=== PATIENT | male | born 1965 | race Caucasian/White ===

== ENCOUNTER 2022-07-20 18:23 | Inpatient (IN) | payer BC ==
[~2022-07-20] VITALS: Ht 180.3 cm; Wt 121.6 kg
[2022-07-20 19:07] VITALS: BP_SYST 132
--- NOTE | 2022-07-20 19:54 | NUR ---
Placed in room 03 . Placed on case monitor, blood pressure machine and pulse oximeter. To gown for exam. Side rails up. Report given to GEORGIE WILLIS.
--- NOTE | 2022-07-20 20:03 | NUR ---
Received pt in bed 3, A&OX4, NAD. Pt c/o of abdominal pain. Pt reported that he went to urgent care for his abd pain.
[2022-07-20 20:04] LABS: BASOPHILS % (AUTO) 0.4 % (0.0-2.0); EOSINOPHILS % (AUTO) 0.3 % (0.0-4.0); HEMATOCRIT 43.4 % (36-54); HEMOGLOBIN 14.7 g/dL (14.0-18.0); LYMPHOCYTES # (AUTO) 1.2 K/uL (1.0-5.5); LYMPHOCYTES % (AUTO) 8.9 % (20.5-51.5); MEAN CORPUSCULAR HEMOGLOBIN 30 pg (27-31); MEAN CORPUSCULAR HGB CONC 34 % (32-36); MEAN CORPUSCULAR VOLUME 88 fL (79.0-98.0); MONOCYTES % (AUTO) 7.7 % (1.7-9.3); NEUTROPHILS % (AUTO) 82.7 % (40.0-70.0); PLATELET COUNT (AUTO) 207 K/uL (130-430); RED BLOOD CELL COUNT(AUTO) 4.95 MIL/uL (4.2-6.2); RED CELL DISTRIBUTION WIDTH 14.1 % (9.0-15.0); WHITE BLOOD COUNT (AUTO) 13.3 K/uL (4.8-10.8)
--- NOTE | 2022-07-20 20:04 | NUR ---
ER Dr. Arenas at bedside examining patient.
--- NOTE | 2022-07-20 20:05 | NUR ---
# 20 gauge angiocath placed to R AC. Use of asceptic technique. Opsite placed over site. Blood return noted. Blood for lab drawn from site. Flushed with 10 cc of normal saline. No evidence of infiltration noted. Patient tolerated well.
[2022-07-20 20:13] LABS: ANION GAP 8 (5-15); CALCIUM 8.9 mg/dL (8.4-11.0); CHLORIDE 100 mmol/L (98-107); GFR AFRICAN AMERICAN 80 mL/min (>90); GLUCOSE 119 mg/dL (70-99); UREA NITROGEN, BLOOD 15 mg/dL (8-21)
[2022-07-20] MEDS ORDERED: NACL 0.9% 1,000 ML IV ONE ×3 (20:15→22:00)
[2022-07-20 20:25] LABS: ALANINE AMINOTRANSFERASE 40 U/L (12-78); ALBUMIN 4.1 g/dL (3.4-4.8); ASPARTATE AMINOTRANSFERASE 20 U/L (10-37); TOTAL BILIRUBIN 0.8 mg/dL (0.0-1.0)
[2022-07-20 20:26] LABS: BILIRUBIN,URINE NEGATIVE (NEGATIVE); BLOOD, URINE NEGATIVE (NEGATIVE); CLARITY/URINE CLEAR (CLEAR); COLOR,URINE YELLOW (YELLOW); GLUCOSE,URINE NEGATIVE (NEGATIVE); KETONES,URINE NEGATIVE (NEGATIVE); LEUKOCYTE ESTERASE ,URINE NEGATIVE (NEGATIVE); NITRITE, URINE NEGATIVE (NEGATIVE); PH,URINE 5.5 (5.0-8.0); PROTEIN URINE NEGATIVE (NEGATIVE); UROBILINOGEN,URINE 0.2 (0.2-1.0)
[2022-07-20] MEDS ORDERED: iohexoL 350 mgI/mL, 100 ML INFUS..BTL IV ONE (20:38)
[2022-07-20] MEDS ORDERED: MORPHINE 4 MG INJ. 4 MG/ML VIAL IVP ONE (22:00)
[2022-07-20] MEDS ORDERED: ONDANSETRON HCL 4 MG/2 ML VIAL IVP ONE (22:00)
[2022-07-20] MEDS ORDERED: cefTRIAXone 2 GM VIAL ONE (22:07)
--- NOTE | 2022-07-20 22:14 | NUR ---
COVID AND FLU SWABBED AND SENT TO LAB
--- NOTE | 2022-07-20 22:25 | NUR ---
Admit bed requested Patient will be admitted to care of . Admitted to TELEMETRY unit. Diagnosis : ABDOMINAL PAIN, SEPSIS Inpatient :Yes Observation :NO Orientation concerns or request close to nursing station : No Covid Status :PND On vent or bipap :NO Isolation requirements : NO Needs a sitter :NO From Home :Yes Requires Dialysis : No Med Rec Completed :YES
[2022-07-20] MEDS ORDERED: PIPERACILLIN/TAZOBACTAM 3.375 GM/VIAL (ZOSYN) IV ONE (22:49)
[2022-07-20] MEDS ORDERED: PIPERACILLIN/TAZO 3.375 GM in NS 50 ML IV ONE (23:00)
--- NOTE | 2022-07-20 23:12 | NUR ---
COVID & FLU RESULT= NEGATIVE
[2022-07-20] MEDS ORDERED: ONDANSETRON HCL 4 MG/2 ML VIAL IVP PRN (23:30)
[2022-07-20] MEDS ORDERED: NALOXONE HCL 0.4 MG/ML AMP (NARCAN) IVP PRN (23:30)
[2022-07-20] MEDS ORDERED: ACETAMINOPHEN 325 MG TABLET PO PRN ×2 (23:30)
[2022-07-20] MEDS ORDERED: MORPHINE 4 MG INJ. 4 MG/ML VIAL IVP PRN (23:30)
[2022-07-20] MEDS ORDERED: MORPHINE 2 MG/ML INJ. SYRINGE IVP PRN (23:30)
--- NOTE | 2022-07-20 23:55 | NUR ---
Patient will be admitted to care of Dr. BUTLER. Admitted to TELE unit. Will go to room 123A. Belongings list completed. Complete and up to date summary report printed. SBAR report to be given at bedside to GEORGIE Perez with opportunity for questions.
[2022-07-21] VITALS: BP_SYST 136
--- NOTE | 2022-07-21 00:58 | NUR ---
RECEIVED PT FROM ER, AOX4, EVEN AND UNLABORED BREATHING, PT DENIED SOB, CP, N/V OR PAIN ATT, VSS, RAC SALINE LOCK INTACT, NO SKIN TEAR OR BRUISES NOTED UPON SKIN ASSESSMENT, ORIENTED PT TO RESTROOM, BED POSITION, USE OF CALL LIGHT AND PLAN OF CARE, PT AMBULATORY MTO RESTROOM W/O DIZZINESS OR PAIN, WILL CONTINUE WITH POC
[2022-07-21 00:59] VITALS: BP_SYST 136
[2022-07-21] MEDS ORDERED: PIPERACILLIN/TAZOBACTAM 3.375 GM/VIAL (ZOSYN) IV ONE (01:46)
[2022-07-21] MEDS: PIPERACILLIN/TAZO 3.375/DEX-IS 50 ML IV SCH ×3 (05:21→18:58)
[2022-07-21 06:04] VITALS: BP_SYST 132
[2022-07-21 06:48] LABS: CALCIUM 7.8 mg/dL (8.4-11.0); CREATININE 1.02 mg/dL (0.55-1.30)
[2022-07-21 06:54] LABS: ALBUMIN 3.2 g/dL (3.4-4.8); TOTAL BILIRUBIN 0.7 mg/dL (0.0-1.0)
--- NOTE | 2022-07-21 07:01 | NUR ---
PT ASLEEP IN BED, AOX4, EVEN AND UNLABORED BREATHING, VSS, RAC SALINE LOCK INTACT AND PATENT, RECEIVED SCHEDULED ANTIBIOTIC, PT AMBULATORY TO RESTROOM, VOIDING W/O DIFFICULTY, NO CHANGES DURING THIS SHIFT, WILL ENDORSE TO AM SHIFT
[2022-07-21 07:56] LABS: BASOPHILS % (AUTO) 0.3 % (0.0-2.0); EOSINOPHILS % (AUTO) 0.4 % (0.0-4.0); HEMOGLOBIN 13.4 g/dL (14.0-18.0); LYMPHOCYTES # (AUTO) 1.3 K/uL (1.0-5.5); LYMPHOCYTES % (AUTO) 15.2 % (20.5-51.5); MEAN CORPUSCULAR HEMOGLOBIN 30 pg (27-31); MEAN CORPUSCULAR HGB CONC 34 % (32-36); MEAN CORPUSCULAR VOLUME 87 fL (79.0-98.0); MONOCYTES # (AUTO) 0.8 K/uL (0.0-1.0); MONOCYTES % (AUTO) 9.4 % (1.7-9.3); NEUTROPHILS # (AUTO) 6.2 K/uL (1.8-7.7); NEUTROPHILS % (AUTO) 74.7 % (40.0-70.0); PLATELET COUNT (AUTO) 144 K/uL (130-430); RED BLOOD CELL COUNT(AUTO) 4.47 MIL/uL (4.2-6.2); RED CELL DISTRIBUTION WIDTH 13.9 % (9.0-15.0)
[2022-07-21 09:27] LABS: WHITE BLOOD COUNT (AUTO) 8.3 K/uL (4.8-10.8)
[2022-07-21 13:15] VITALS: BP_SYST 125
--- NOTE | 2022-07-21 15:58 | NUR ---
CONSULTATION: REASON FOR CONSULT: EPIGASTRIC PAIN CONSULTING PHYSICIAN: NESHA, ORDERED BY: LUKE SPOKE WITH NATHALIE FROM [facility] [phone]
[2022-07-21 16:44] VITALS: BP_SYST 139
[2022-07-21 20:00] VITALS: BP_SYST 127
--- NOTE | 2022-07-21 20:00 | NUR ---
pt resting in bed alert and oriented x 4.denies abdominal pains vitals done Bps 127/65 HR 66 Temp 97.1.has a peripheral line 20G to right upper arm to KVO/antibiotics
--- NOTE | 2022-07-21 22:00 | NUR ---
Inserted a new peripheral line G 18 to right hand.flushed and patent
[2022-07-22] MEDS: PIPERACILLIN/TAZO 3.375/DEX-IS 50 ML IV SCH ×3 (00:09→11:56)
[2022-07-22 01:33] VITALS: BP_SYST 131
[2022-07-22 04:43] VITALS: BP_SYST 130
[2022-07-22 07:10] LABS: BASOPHILS # (AUTO) 0.1 K/uL (0.0-0.2); EOSINOPHILS # (AUTO) 0.2 K/uL (0.0-0.4); HEMATOCRIT 38.7 % (36-54); HEMOGLOBIN 13.1 g/dL (14.0-18.0); LYMPHOCYTES % (AUTO) 24.2 % (20.5-51.5); MEAN CORPUSCULAR HEMOGLOBIN 30 pg (27-31); MEAN CORPUSCULAR HGB CONC 34 % (32-36); MEAN CORPUSCULAR VOLUME 88 fL (79.0-98.0); MONOCYTES # (AUTO) 0.9 K/uL (0.0-1.0); MONOCYTES % (AUTO) 10.9 % (1.7-9.3); NEUTROPHILS # (AUTO) 4.9 K/uL (1.8-7.7); NEUTROPHILS % (AUTO) 60.9 % (40.0-70.0); PLATELET COUNT (AUTO) 152 K/uL (130-430); RED BLOOD CELL COUNT(AUTO) 4.41 MIL/uL (4.2-6.2); RED CELL DISTRIBUTION WIDTH 13.8 % (9.0-15.0); WHITE BLOOD COUNT (AUTO) 8.1 K/uL (4.8-10.8)
[2022-07-22 07:26] LABS: ALBUMIN 3.1 g/dL (3.4-4.8); CALCIUM 8.3 mg/dL (8.4-11.0); CREATININE 1.03 mg/dL (0.55-1.30); TOTAL BILIRUBIN 0.7 mg/dL (0.0-1.0)
--- NOTE | 2022-07-22 07:37 | NUR ---
endorsed report to [facility] JACQUES
[2022-07-22 08:00] VITALS: BP_SYST 131
--- NOTE | 2022-07-22 08:00 | NUR ---
ASSESSMENT COMPLETED PLAN OF CARE REVIEWED PT A/OX4 AMBULATORY DENIES PAIN AT THIS TIME BREATHING EVEN NON LABORED ORIENTED TO ROOM AND CALL LIGHT WITHIN REACH WILL CONITNUE TO MONITOR AND ASSES
--- NOTE | 2022-07-22 09:56 | NUR ---
Dietitian Recommendations * Continue regular diet GS, MPH, RD Please refer to RD Assessment for further details. Thanks! Addendum: 07/22/22 at [address] Amended: Links added.
[2022-07-22] MEDS ORDERED: CIPR500T5 PO (11:44)
[2022-07-22 11:52] VITALS: BP_SYST 147
[2022-07-22] MEDS ORDERED: CIPROFLOXACIN HCL 500 MG TABLET PO ONE (12:15)
[2022-07-22] MEDS ORDERED: metroNIDAZOLE 250 MG TABLET PO ONE (12:15)
[2022-07-22 12:37] VITALS: BP_SYST 147
--- NOTE | 2022-07-22 13:40 | NUR ---
SPOKE WITH DR BUTLER MADE AWARE OF THE CONFLICT OF RX DISCHARGE MD GIVEN [facility] PHONE NUMBER AND HE WILL CALL RX IN WILL WAIT FOR PT TO RECEIVE ALERT MEDICATION IS READY PT MADE AWARE
--- NOTE | 2022-07-22 14:16 | NUR ---
CALLED BACK AND ENDORSED HE CALLED [facility] AND LEFT A MESSAGE FOR PT TO RECEIVE LACTOCILIBIS AND FLAGYL PT MADE AWARE AND READY FOR DISCHARGE WILL ENDORSE CARE TO RN
--- NOTE | 2022-07-22 14:57 | NUR ---
14:30 Patient Report Nurse Notes: Patient laying in bed ALOX4. Patient breathing even and unlabored on room air. No pain, no distress, no SOB. Bed is locked in lowest position. Call light within reach, all needs met, patient expected to discharge soon. 14:57 Discharge Nurse Notes: Patient in stable condition, breathing even and unlabored on room air. No pain, no distress, no SOB. Patient went home in private auto with .
== END 2022-07-22 22:40 | disposition home or self-care (01) | DRG 872 ==
LOC: SED 18:23 → STU 22:22
PROVIDERS: ADMIT Internal Medicine; ATTEND Internal Medicine
DX: A41.9 Sepsis, unspecified organism (principal); R16.2 Hepatomegaly with splenomegaly, not elsewhere classified; Z20.822 Contact with and (suspected) exposure to COVID-19; E66.9 Obesity, unspecified; N28.9 Disorder of kidney and ureter, unspecified; K52.89 Other specified noninfective gastroenteritis and colitis; Z91.018 Allergy to other foods; Z79.899 Other long term (current) drug therapy; Z85.528 Personal history of other malignant neoplasm of kidney; Z68.37 Body mass index [BMI] 37.0-37.9, adult
CPT/HCPCS: 36415; 71045; 76376; 76700-TC; 80053; 81003; 83605; 83690; 84484; 85025; 87040; 87086; 93005; 96361; 96365; 96367; 96375; 99291; G0378; J0696; J2270; J2405; J2543; Q9967